=== PATIENT | male | born 1960 | race Caucasian/White ===

== ENCOUNTER → 2020-11-18 | Day surgery (SDC) | payer OTHER ==
[~2020-11-18] VITALS: Ht 175.3 cm; Wt 106.1 kg
[~2020-11-18] MED LIST: ALL DAY ALLERGY10 M2 PO; AMARYL2 MG PO; AMOXICILLIN500 MG PO; ATORVASTATIN CA80 MG PO; CARVEDILOL6.25 MG PO; CLOPIDOGREL75 MG PO; COZAAR50 MG PO; ELIQUIS5 MG PO; METFORMIN HCL500 MG PO; NORVASC5 MG PO; VENTOLIN HFA IN18 GM INH; VIBRAMYCIN100 MG PO; VITAMIN D3100 MCG PO
[2020-11-18 08:57] LABS: HCT 49.4 % (42.0-52.0); HGB 17.5 g/dl (13.2-18.0); MCH 33.6 pg (25.0-31.0); MCHC 35.4 g/dL (32.0-36.0); MCV 94.8 fL (78.0-100.0); MPV 9.9 fL (6.0-9.5); RBC 5.21 M/uL (4.70-6.00); RDW 13.4 % (11.5-14.0)
[2020-11-18 09:10] LABS: ALBUMIN 4.3 g/dL (3.4-5.0); BILIRUBIN - TOTAL 1.2 mg/dL (0.2-1.0); BUN/CREAT RATIO (CALC) 10.2 RATIO; CREATININE 0.88 mg/dL (0.67-1.17); GLOBULIN (CALCULATION) 3.9 g/dL; POTASSIUM 4.5 mmol/L (3.5-5.1); TOTAL PROTEIN 8.2 g/dL (6.4-8.2)
== END | disposition home or self-care (01) ==
LOC: FAS 07:56
PROVIDERS: Surgery
DX: K63.5 Polyp of colon (principal); I48.91 Unspecified atrial fibrillation; I25.10 Atherosclerotic heart disease of native coronary artery without angina pectoris; I11.0 Hypertensive heart disease with heart failure; I50.9 Heart failure, unspecified; E11.9 Type 2 diabetes mellitus without complications; E78.5 Hyperlipidemia, unspecified; F17.219 Nicotine dependence, cigarettes, with unspecified nicotine-induced disorders; Z95.0 Presence of cardiac pacemaker; Z79.899 Other long term (current) drug therapy
CPT/HCPCS: 36415; 80053; J1610; J2250; J2704; J7120

== ENCOUNTER 2020-11-23 18:50 | Emergency (ER) | payer OTHER ==
[2020-11-23 21:20] LABS: BASOPHIL 0.5 % (0-2); EOSINOPHIL 2.3 % (0-5); HCT 40.1 % (42.0-52.0); HGB 13.9 g/dl (13.2-18.0); LYMPHOCYTE 16.8 % (15-48); MCH 33.4 pg (25.0-31.0); MCHC 34.7 g/dL (32.0-36.0); MCV 96.4 fL (78.0-100.0); MONOCYTE 6.4 % (0-12); NEUTROPHIL 73.4 % (41-80); NRBC 0; PLT 180 K/uL (150-400); RBC 4.16 M/uL (4.70-6.00); RDW 13.3 % (11.5-14.0); WBC 10.3 K/uL (4.0-10.5)
[2020-11-23 21:27] LABS: INR 1.32 (0.9-1.2); PROTHROMBIN TIME 15.6 SECONDS (11.4-13.6); PTT 35.2 SECONDS (22.2-34.7)
[2020-11-23 21:32] LABS: BUN/CREAT RATIO (CALC) 19.6 RATIO; CREATININE 0.97 mg/dL (0.67-1.17); POTASSIUM 5.1 mmol/L (3.5-5.1)
== END 2020-11-24 03:04 | disposition home or self-care (01) ==
LOC: FER 18:50
PROVIDERS: Student in an Organized Health Care Education/Training Program
DX: K91.840 Postprocedural hemorrhage of a digestive system organ or structure following a digestive system procedure (principal); R19.7 Diarrhea, unspecified; R10.84 Generalized abdominal pain; E11.9 Type 2 diabetes mellitus without complications; I10 Essential (primary) hypertension; J44.9 Chronic obstructive pulmonary disease, unspecified; Z88.5 Allergy status to narcotic agent; Z95.0 Presence of cardiac pacemaker; Y84.8 Other medical procedures as the cause of abnormal reaction of the patient, or of later complication, without mention of misadventure at the time of the procedure; Z90.49 Acquired absence of other specified parts of digestive tract
CPT/HCPCS: 36415; 72193; 80048; 85025; 85610; 85730; J0780; J1200; Q9967